=== PATIENT | female | born 1960 | race Caucasian/White ===

== ENCOUNTER 2021-02-17 07:35 | Day surgery (SDC) | payer BC ==
[~2021-02-17] VITALS: Ht 165.1 cm; Wt 99.9 kg
[~2021-02-17 07:35] MED LIST: CATAPRES-TTS 20.2 M1; CEFTIN500 MG PO; INDOCIN 25MG CA25 MG PO; LORTAB ELIX0.5 MG/ML PO; NORCO 325 MG-51 TAB PO; ZOFRAN ODT4 MG PO
[2021-02-17 08:24] VITALS: BP 147/80; PULSE 63; TEMP 98.4
[2021-02-17] MEDS ORDERED: COREG 3.123.125 MG/T PO (08:41)
[2021-02-17] MEDS ORDERED: PRINIVIL5 MG PO (08:41)
[2021-02-17 09:10] VITALS: BP 143/71; PULSE 58
--- NOTE | 2021-02-17 09:10 | NUR ---
Patient returns to [facility] per cart after having colonoscopy. Awake and transferred from cart to recliner. IV fluids infusing. Temp 98.2 and room air sats 97%. Daughter in room. Call light in reach. Sipping on [employer]eps[employer]. Denies abdominal pain or nausea.
[2021-02-17 09:25] VITALS: BP 112/70; PULSE 56
--- NOTE | 2021-02-17 09:25 | NUR ---
Eating muffin. Continues to deny pain or nausea. IV fluids infusing.
[2021-02-17 09:37] VITALS: TEMP 98.3
--- NOTE | 2021-02-17 09:38 | NUR ---
Dr. Omer here and talks with patient. All questions answered.
[2021-02-17 09:40] VITALS: BP 129/70; PULSE 57
--- NOTE | 2021-02-17 09:40 | NUR ---
IV discontinued and site is free of redness or swelling. Assisted to the bathroom. Gait steady. Returns to room.
--- NOTE | 2021-02-17 09:44 | NUR ---
Patient dresses self.
--- NOTE | 2021-02-17 09:49 | NUR ---
Dismissal instructions given and signed. Voices understanding of these. Patient dismissed to home driven by daughter and assisted into vehicle by this RN and was taken to vehicle by wheelchair.
== END 2021-02-17 09:49 | disposition home or self-care (01) ==
LOC: SDCO 07:35
DX: Z12.11 Encounter for screening for malignant neoplasm of colon (principal); K92.1 Melena; K57.30 Diverticulosis of large intestine without perforation or abscess without bleeding; K64.1 Second degree hemorrhoids; I10 Essential (primary) hypertension; M19.90 Unspecified osteoarthritis, unspecified site; E66.9 Obesity, unspecified; G62.9 Polyneuropathy, unspecified; Z20.822 Contact with and (suspected) exposure to COVID-19; Z98.0 Intestinal bypass and anastomosis status; Z85.038 Personal history of other malignant neoplasm of large intestine; Z79.899 Other long term (current) drug therapy
CPT/HCPCS: J7030

== ENCOUNTER 2021-09-13 09:59 | Emergency (ER) | payer BC ==
[~2021-09-13] VITALS: Ht 162.6 cm; Wt 94.5 kg
[~2021-09-13 09:59] MED LIST changes: +COREG 3.123.125 MG/T PO; +PRINIVIL5 MG PO
[2021-09-13 10:18] VITALS: TEMP 98.4
[2021-09-13] MEDS ORDERED: FLEXERIL5 MG PO (10:29)
[2021-09-13 10:30] LABS: BASO # 0.1 K/mm3 (0.0-0.2); BASO % 0.5 % (0.0-2.0); EOS % 0.3 % (0.0-4.0); GRAN # 7.3 K/mm3 (1.4-6.5); GRAN % 72.3 % (42.2-75.2); HEMATOCRIT 39.3 % (37.0-47.0); HEMOGLOBIN 13.4 g/dl (12.5-16.0); LYMPH # 1.6 K/mm3 (1.2-3.4); LYMPH % 15.7 % (20.0-51.0); MEAN CELL VOLUME 91 fl (80.0-100.0); MEAN CORPUSCULAR HEMOGLOBIN 31 pg (27-31); MEAN CORPUSCULAR HGB CONC 34 g/dl (33.0-37.0); MEAN PLATELET VOLUME 9.3 fl (7.4-10.4); MONO # 1.1 K/mm3 (0.1-0.6); MONO % 10.5 % (1.7-9.3); PLATELET COUNT 290 K/mm3 (130-400); REDCELL DISTRIBUTION WIDTH-CV 12.4 % (11.5-14.5)
[2021-09-13 10:46] LABS: ALANINE AMINOTRANSFERASE 29 U/L (0-55); ALBUMIN 3.4 gm/dL (3.4-4.8); ALKALINE PHOSPHATASE 119 U/L (40-150); ANION GAP 12 mmol/L (7-16); AST,SGOT 23 U/L (5-34); BILIRUBIN,TOTAL 1.5 mg/dL (0.2-1.2); BLOOD UREA NITROGEN 8 mg/dL (10-20); C-REACTIVE PROTEIN 8.88 mg/dL (0.00-0.50); CALCIUM 9.1 mg/dL (8.4-10.2); CARBON DIOXIDE 23 mmol/L (23-31); CHLORIDE 102 mmol/L (98-107); CREATININE, serum 0.94 mg/dL (0.57-1.11); GLUCOSE 119 mg/dL (70-99); POTASSIUM 3.6 mmol/L (3.5-4.5); SODIUM 137 mmol/L (136-145); TOTAL PROTEIN 7.6 gm/dL (6.2-8.1)
[2021-09-13 10:53] LABS: TROPONIN-I < 0.010 ng/mL (0.00-0.033)
[2021-09-13 13:15] VITALS: BP 105/86; PULSE 72
== END 2021-09-13 13:36 | disposition home or self-care (01) ==
LOC: COL.ER 09:59
PROVIDERS: Nurse Practitioner
DX: R06.02 Shortness of breath (principal); R53.83 Other fatigue; R11.0 Nausea; Z86.16 Personal history of COVID-19; Z91.040 Latex allergy status
CPT/HCPCS: J2405; J7030; Q9967